=== PATIENT | female | born 1955 | race Caucasian/White ===

== ENCOUNTER 2025-02-26 18:54 | Emergency (ER) | payer MEDICAID ==
[~2025-02-26] VITALS: Ht 167.6 cm; Wt 103.0 kg
[2025-02-26] MEDS: NS 500 ML IV ONE (20:35)
[2025-02-26 21:19] LABS: BASO # 0.0 10^3/uL (0.0-0.2); BASO % 0.5 % (0.0-1.0); EOS # 0.2 10^3/uL (0.0-0.5); EOS % 4.7 % (0.0-3.0); LYMPH # 0.9 10^3/uL (1.5-5.0); LYMPH % 21.4 % (24.0-44.0); MONO # 0.3 10^3/uL (0.0-0.8); MONO % 7.0 % (2.0-8.0); NEUTROPHILS # 2.8 10^3/uL (1.5-8.5); NEUTROPHILS % 66.2 % (36.0-66.0); PLATELET COUNT, AUTOMATED 173 10^3/uL (150-450)
[2025-02-26 21:53] LABS: CALCIUM LEVEL 8.7 MG/DL (8.3-10.6); CARBON DIOXIDE LEVEL 26 MMOL/L (20-31); CHLORIDE LEVEL 108 MMOL/L (98-107); CREATININE FOR GFR 0.69 MG/DL (0.55-1.30); GLOMERULAR FILTRATION RATE > 90.0 (>45); POTASSIUM SERUM 3.9 MMOL/L (3.5-5.1); SODIUM LEVEL 141 MMOL/L (136-145)
[2025-02-26] MEDS: NS (Normal Saline) 0.9% 1,000 ML IV SCH (23:38)
[2025-02-26] MEDS: KETAMINE HCL 200 MG/20 ML VIAL IV ONE (23:39)
[2025-02-27] MEDS: MORPHINE 4 MG/ML 1 ML VIAL IV PRN (04:35)
[2025-02-27 06:45] VITALS: BP 154/65; TEMP 100; O2SAT 95
[2025-02-27] MEDS ORDERED: NS (Normal Saline) 0.9% 1,000 ML IV ONE (07:00)
== END 2025-02-27 07:00 | disposition short-term general hospital (02) ==
LOC: M ED 18:54 → EDBD 18:54 → M ED 02-27 07:00
DX: T84.030A Mechanical loosening of internal right hip prosthetic joint, initial encounter (principal); I49.1 Atrial premature depolarization; I10 Essential (primary) hypertension; K21.9 Gastro-esophageal reflux disease without esophagitis; Z79.899 Other long term (current) drug therapy; Z96.641 Presence of right artificial hip joint
CPT/HCPCS: 73502; 73552; 80048; 85025; 93005; 93041; 94760; 96361; 96374; 96375; 99285; J3010